=== PATIENT | male | born 1985 | race Caucasian/White ===

== ENCOUNTER 2017-02-25 09:14 | Emergency (ER) | payer OTHER ==
[~2017-02-25] VITALS: Ht 172.7 cm; Wt 74.8 kg
[~2017-02-25 09:14] MED LIST: Bactrim Ds Tab1 EACH PO; CEPH500 PO; Doxycycline Hy100 MG PO; HYDACE5 PO; LEVE500 PO; OXYACE5T PO; Pseudoephedrine30 MG PO
[2017-02-25] MEDS ORDERED: Sudogest60 MG PO (10:58)
[2017-02-25] MEDS ORDERED: Cheratussin AC118 ML PO (10:58)
== END 2017-02-25 11:23 | disposition home or self-care (01) ==
LOC: ER 09:14
DX: J06.9 Acute upper respiratory infection, unspecified (principal); G40.909 Epilepsy, unspecified, not intractable, without status epilepticus; F17.200 Nicotine dependence, unspecified, uncomplicated; Z79.899 Other long term (current) drug therapy
CPT/HCPCS: 99283

== ENCOUNTER 2017-08-18 13:00 | Emergency (ER) | payer MEDICAID ==
[~2017-08-18] VITALS: Ht 167.6 cm; Wt 72.6 kg
[~2017-08-18 13:00] MED LIST changes: +Cheratussin AC118 ML PO; +Sudogest60 MG PO
[2017-08-18] MEDS ORDERED: Polytrim Eye Dr10 ML RIGHTEYE (13:20)
== END 2017-08-18 13:25 | disposition home or self-care (01) ==
LOC: ER 13:00
DX: H10.9 Unspecified conjunctivitis (principal); Z79.899 Other long term (current) drug therapy; F17.210 Nicotine dependence, cigarettes, uncomplicated
CPT/HCPCS: 99283

== ENCOUNTER 2019-01-12 20:16 | Emergency (ER) | payer BC ==
[~2019-01-12] VITALS: Ht 165.1 cm; Wt 77.1 kg
[~2019-01-12 20:16] MED LIST changes: +Polytrim Eye Dr10 ML RIGHTEYE
[2019-01-12] MEDS ORDERED: IBUP800 PO (21:00)
== END 2019-01-12 21:08 | disposition home or self-care (01) ==
LOC: ER 20:16
DX: S60.021A Contusion of right index finger without damage to nail, initial encounter (principal); F17.200 Nicotine dependence, unspecified, uncomplicated; Z79.899 Other long term (current) drug therapy; W23.0XXA Caught, crushed, jammed, or pinched between moving objects, initial encounter
CPT/HCPCS: 29130; 73140; 99283-25